=== PATIENT | female | born 1940 | race Caucasian/White ===

== ENCOUNTER → 2017-07-31 | Outpatient (CLI) | payer MEDICARE ==
[~2017-07-31] MED LIST: ASPIRIN81 M1 PO; ATORVASTATIN CA40 M1 PO; BENICAR5 MG PO; CARDIZEM CD240 MG PO; CIPRO500 MG PO; DELTASONE20 M1 PO; HUMULIN N100 U/ML SC; HUMULIN N100 UNIT/1 SQ; HYDROCHLOROTHIA25 MG PO; KLOR-CON 1010 ME1 PO; LOPRESSOR50 M1 PO; LUTEIN1 BEA; OMEPRAZOLE40 MG PO; TOPCARE OMEPRAZ20 MG PO; VICODIN 5/500 505 MG PO; VITAMIN B COMPL1 CAP PO; VITAMIN D1000 IU PO; ZOCOR5 MG PO; [UNRECOGNIZED DRUG - REMARK]
== END | disposition home or self-care (01) ==
LOC: RAD 10:33
DX: Z13.820 Encounter for screening for osteoporosis (principal); Z78.0 Asymptomatic menopausal state

== ENCOUNTER 2017-08-14 12:10 | Emergency (ER) | payer MEDICARE ==
[~2017-08-14] VITALS: Ht 157.4 cm; Wt 81.6 kg
[~2017-08-14 12:10] MED LIST changes: -DELTASONE20 M1 PO
[2017-08-14] MEDS ORDERED: DELTASONE20 M1 PO (14:41)
== END 2017-08-14 16:39 | disposition home or self-care (01) ==
LOC: ED 12:10
DX: M13.812 Other specified arthritis, left shoulder (principal); M54.12 Radiculopathy, cervical region; Z79.899 Other long term (current) drug therapy; Z79.82 Long term (current) use of aspirin

== ENCOUNTER → 2019-08-16 | Outpatient (CLI) | payer MEDICARE ==
[~2019-08-16] MED LIST changes: +DELTASONE20 M1 PO
[2019-08-16 08:56] LABS: BUN 16 mg/dl (7-24); CHLORIDE 108 mmol/L (98-107); CHOLESTEROL 130 mg/dL (<200); POTASSIUM 3.5 mmol/L (3.5-5.1); SODIUM 144 mmol/L (136-145); TRIGLYCERIDES 100 mg/dl (<150); VLDL CHOLESTEROL 20 mg/dL (6-40)
[2019-08-16 09:05] LABS: HDL CHOLESTEROL 45 mg/dl (40-60); LDL CHOLESTEROL 65 mg/dL (9-159); THYROID STIM HORMONE (HS) 0.027 uIU/ml (0.358-4.75)
== END | disposition home or self-care (01) ==
LOC: LAB 07:32
PROVIDERS: Family Medicine
DX: E11.9 Type 2 diabetes mellitus without complications (principal); E78.2 Mixed hyperlipidemia

== ENCOUNTER → 2019-08-21 | Outpatient (CLI) | payer MEDICARE ==
[2019-08-21 10:31] LABS: FREE T4 1.17 ng/dl (0.76-1.46)
[2019-08-21 10:35] LABS: THYROID STIM HORMONE (HS) 0.021 uIU/ml (0.358-4.75)
== END | disposition home or self-care (01) ==
LOC: LAB 09:52
PROVIDERS: Family Medicine
DX: E05.90 Thyrotoxicosis, unspecified without thyrotoxic crisis or storm (principal)

== ENCOUNTER 2020-01-04 11:22 | Emergency (ER) | payer MEDICARE ==
[~2020-01-04] VITALS: Ht 162.5 cm; Wt 81.6 kg
[2020-01-04 11:50] LABS: BASO % 0.3 % (0.0-1.0); EOS # 0.2 10*3/uL (0.0-0.4); EOS % 1.3 % (1.0-4.0); HEMATOCRIT 41.6 % (37.0-47.0); LYMPH # 2.1 10*3/uL (1.3-4.4); LYMPH % 19.1 % (27.0-41.0); MEAN CELL VOLUME 84.6 fl (81.0-99.0); MEAN CORPUSCULAR HGB 27.4 pg (27.0-31.0); MEAN CORPUSCULAR HGB CONC 32.5 g/dl (33.0-37.0); MEAN PLATELET VOLUME 10.4 fl (9.6-12.3); MONO # 0.7 10*3/uL (0.1-1.0); MONO % 6.3 % (3.0-9.0); NEUT # 8.1 10*3/uL (2.3-7.9); NEUT % 72.7 % (47.0-73.0); PLATELET COUNT AUTOMATED 206 10*3/uL (130-400); RED BLOOD COUNT 4.92 10*6/uL (4.10-5.10); RED CELL DISTRI WIDTH 13.3 % (0-14.5); WHITE BLOOD COUNT 11.1 10*3/uL (4.8-10.8)
[2020-01-04 12:07] LABS: ALBUMIN 3.3 gm/dl (3.1-4.5); ALKALINE PHOSPHATASE 85 U/L (45-117); BUN 14 mg/dl (7-24); CHLORIDE 104 mmol/L (98-107); CREATININE 0.96 mg/dL (0.55-1.02); POTASSIUM 3.6 mmol/L (3.5-5.1); SGOT/AST 18 IU/L (3-35); SGPT/ALT 18 U/L (12-78); SODIUM 138 mmol/L (136-145); TOTAL PROTEIN 7.8 gm/dL (6.4-8.2)
[2020-01-04 12:08] LABS: TROPONIN I < 0.015 ng/ml (<0.045)
== END 2020-01-04 13:29 | disposition home or self-care (01) ==
LOC: ED 11:22
PROVIDERS: Physician Assistant
DX: I10 Essential (primary) hypertension (principal); R79.1 Abnormal coagulation profile; K21.9 Gastro-esophageal reflux disease without esophagitis; E11.9 Type 2 diabetes mellitus without complications; Z79.899 Other long term (current) drug therapy; Z79.82 Long term (current) use of aspirin; Z79.4 Long term (current) use of insulin

== ENCOUNTER → 2020-05-15 | Outpatient (CLI) | payer MEDICARE ==
[2020-05-15 10:00] LABS: BUN 19 mg/dl (7-24); CHLORIDE 103 mmol/L (98-107); CHOLESTEROL 116 mg/dL (<200); CREATININE 1.06 mg/dL (0.55-1.02); HDL CHOLESTEROL 44 mg/dl (40-60); LDL CHOLESTEROL 44 mg/dL (9-159); POTASSIUM 4.2 mmol/L (3.5-5.1); SODIUM 140 mmol/L (136-145); TRIGLYCERIDES 142 mg/dl (<150); VLDL CHOLESTEROL 28 mg/dL (6-40)
[2020-05-15 10:06] LABS: THYROID STIM HORMONE (HS) 0.014 uIU/ml (0.358-4.75)
== END | disposition home or self-care (01) ==
LOC: LAB 09:07
PROVIDERS: ATTEND Family Medicine
DX: E11.9 Type 2 diabetes mellitus without complications (principal); I10 Essential (primary) hypertension

== ENCOUNTER → 2020-09-04 | Outpatient (CLI) | payer MEDICARE ==
[2020-09-04 10:50] LABS: BUN 19 mg/dl (7-24); CHLORIDE 106 mmol/L (98-107); CREATININE 0.96 mg/dL (0.55-1.02); POTASSIUM 3.9 mmol/L (3.5-5.1); SODIUM 139 mmol/L (136-145)
[2020-09-04 10:51] LABS: CHOLESTEROL 138 mg/dL (<200); TRIGLYCERIDES 114 mg/dl (<150); VLDL CHOLESTEROL 23 mg/dL (6-40)
[2020-09-04 11:01] LABS: HDL CHOLESTEROL 49 mg/dl (40-60); LDL CHOLESTEROL 66 mg/dL (9-159); THYROID STIM HORMONE (HS) 0.019 uIU/ml (0.358-4.75)
== END | disposition home or self-care (01) ==
LOC: LAB 09:37
PROVIDERS: ATTEND Family Medicine
DX: E11.9 Type 2 diabetes mellitus without complications (principal); I10 Essential (primary) hypertension; E78.2 Mixed hyperlipidemia

== ENCOUNTER → 2021-02-09 | Outpatient (CLI) | payer MEDICARE ==
[~2021-02-09] MED LIST changes: +AUGMENTIN 875-875 MG PO; +CYCLOBENZAPRINE10 MG PO; +METFORMIN HCL1000 M1 PO; +NORVASC10 MG PO; +PREDNISONE10 MG PO; +TOPROL XL50 M1 PO; +ZESTRIL10 MG PO
== END | disposition home or self-care (01) ==
LOC: US 10:09
PROVIDERS: ATTEND Family Medicine
DX: I73.9 Peripheral vascular disease, unspecified (principal)

== ENCOUNTER → 2021-10-08 | Outpatient (CLI) | payer MEDICARE ==
[2021-10-08 09:02] LABS: BUN 15 mg/dl (7-24); CHLORIDE 108 mmol/L (98-107); CREATININE 0.76 mg/dL (0.55-1.02); POTASSIUM 3.7 mmol/L (3.5-5.1); SODIUM 142 mmol/L (136-145)
[2021-10-08 09:06] LABS: CHOLESTEROL 125 mg/dL (<200); LDL CHOLESTEROL 63 mg/dL (9-159); TRIGLYCERIDES 87 mg/dl (<150)
[2021-10-08 09:13] LABS: THYROID STIM HORMONE (HS) 0.006 uIU/ml (0.358-4.75)
== END | disposition home or self-care (01) ==
LOC: LAB 07:28
PROVIDERS: ATTEND Family Medicine
DX: I10 Essential (primary) hypertension (principal); E11.9 Type 2 diabetes mellitus without complications

== ENCOUNTER → 2022-01-07 | Outpatient (CLI) | payer MEDICARE ==
[2022-01-07 09:54] LABS: FREE T4 1.09 ng/dl (0.76-1.46)
[2022-01-07 09:59] LABS: THYROID STIM HORMONE (HS) 0.013 uIU/ml (0.358-4.75)
== END | disposition home or self-care (01) ==
LOC: LAB 09:25
PROVIDERS: ATTEND Family Medicine
DX: E05.90 Thyrotoxicosis, unspecified without thyrotoxic crisis or storm (principal)

== ENCOUNTER → 2022-03-30 | Outpatient (CLI) | payer MEDICARE ==
[2022-03-30 10:51] LABS: BUN 14 mg/dl (7-24); CHLORIDE 108 mmol/L (98-107); CHOLESTEROL 109 mg/dL (<200); CREATININE 0.92 mg/dL (0.55-1.02); FREE T4 1.31 ng/dl (0.76-1.46); POTASSIUM 4.1 mmol/L (3.5-5.1); SODIUM 143 mmol/L (136-145); TRIGLYCERIDES 120 mg/dl (<150)
[2022-03-30 10:58] LABS: LDL CHOLESTEROL 45 mg/dL (9-159); THYROID STIM HORMONE (HS) 0.006 uIU/ml (0.358-4.75)
== END | disposition home or self-care (01) ==
LOC: LAB 09:30
PROVIDERS: ATTEND Family Medicine
DX: E11.9 Type 2 diabetes mellitus without complications (principal); E78.2 Mixed hyperlipidemia; E05.90 Thyrotoxicosis, unspecified without thyrotoxic crisis or storm

== ENCOUNTER → 2022-09-16 | Outpatient (CLI) | payer MEDICARE ==
[2022-09-16 10:12] LABS: BUN 12 mg/dl (9-23); CHLORIDE 104 mmol/L (98-107); CHOLESTEROL 131 mg/dL (<200); FREE T4 1.25 ng/dl (0.89-1.76); LDL CHOLESTEROL 67 mg/dL (9-159); POTASSIUM 3.7 mmol/L (3.4-5.1); THYROID STIM HORMONE (HS) 0.009 uIU/ml (0.550-4.780); TRIGLYCERIDES 120 mg/dl (<150)
== END | disposition home or self-care (01) ==
LOC: LAB 09:36
PROVIDERS: ATTEND Family Medicine
DX: E11.9 Type 2 diabetes mellitus without complications (principal); E78.2 Mixed hyperlipidemia; E05.90 Thyrotoxicosis, unspecified without thyrotoxic crisis or storm

== ENCOUNTER → 2023-04-07 | Outpatient (CLI) | payer MEDICARE ==
[2023-04-07 10:05] LABS: BUN 14 mg/dl (9-23); CHLORIDE 104 mmol/L (98-107); CHOLESTEROL 124 mg/dL (<200); LDL CHOLESTEROL 60 mg/dL (9-159); POTASSIUM 3.7 mmol/L (3.4-5.1); THYROXINE (T4) TOTAL 10.6 ug/dl (4.5-10.9); TRIGLYCERIDES 102 mg/dl (<150)
== END | disposition home or self-care (01) ==
LOC: LAB 09:02
PROVIDERS: ATTEND Family Medicine
DX: I10 Essential (primary) hypertension (principal); E78.2 Mixed hyperlipidemia; E11.9 Type 2 diabetes mellitus without complications